=== PATIENT | male | born 1955 | race Caucasian/White ===

== ENCOUNTER 2024-09-20 02:46 | Inpatient (IN) | payer SELFPAY ==
[~2024-09-20] VITALS: Ht 175.3 cm; Wt 80.7 kg
[2024-09-20] VITALS (57 sets, daily range): BP systolic 87–147; BP diastolic 55–96; PULSE 70–134; RESP 17–33; TEMP 36.44736–39.94764; O2SAT 91–100
[2024-09-20 03:16] LABS: BASOPHILS % 0.6 % (0.0-2.0); HEMATOCRIT. 42.6 % (42.0-52.0); HEMOGLOBIN. 14.7 g/dL (14.0-18.0); LYMPHOCYTES % 13.2 % (20.0-50.0); MEAN CORPUSCULAR HEMOGLOBIN 29.2 pg (28.0-32.0); MEAN CORPUSCULAR HGB CONC 34.4 g/dL (31.0-37.0); MEAN PLATELET VOLUME 8.6 fl (7.4-10.4); MONOCYTES % 5.9 % (2.0-8.0); NEUTROPHILS % 79.3 % (40.0-76.0); PLATELET 172 x1000/uL (130-400); RED BLOOD CELL COUNT 5.02 mill/uL (4.7-6.1); RED CELL DISTRIBUTION WIDTH 16.2 % (11.6-14.6); WHITE BLOOD COUNT 11.2 x1000/uL (4.5-11.0)
[2024-09-20 03:18] LABS: CHLORIDE 106 mEq/L (98-107); POTASSIUM 3.9 mEq/L (3.5-5.1); SODIUM 139 mEq/L (136-145)
[2024-09-20 03:19] LABS: CALCIUM 9.1 mg/dL (8.7-10.4); CARBON DIOXIDE 27 mEq/L (21-32)
[2024-09-20 03:24] LABS: CREATININE 0.9 mg/dL (0.6-1.3); GLUCOSE 145 mg/dL (70-105); UREA NITROGEN BLOOD 24 mg/dL (9-23)
[2024-09-20 04:02] LABS: ETHANOL BLOOD < 10 mg/dL (<10)
[2024-09-20 04:38] LABS: BG BASE EXCESS -0.1 mmol/L (-2.0-3.0); BG CARBOXYHEMOGLOBIN 0.3 % (0.5-1.5); BG DEOXYHEMOGLOBIN 0.5 % (0.0-5.0); BG FRACTION INSPIRED OXYGEN 100; BG HCO3 ACT 23.5 mmol/L (21.0-28.0); BG METHEMOGLOBIN 0.3 % (0.5-1.5); BG OXYGEN SATURATION 99.5 % (94.0-98.0); BG OXYHEMOGLOBIN 98.9 % (94.0-98.0); BG PCO2 35.7 mmHg (35.0-48.0); BG PH 7.437 (7.350-7.450); BG PO2 259.8 mmHg (83.0-108.0); BG SAMPLE SITE RIGHT BRACHIAL; BG TOTAL HEMOGLOBIN 15.1 g/dL (13.5-17.5); BG VENT MODE MASK - NRB
[2024-09-20 04:39] LABS: TROPONIN I HIGH SENSITIVITY 6 ng/L (3.0-53)
[2024-09-20] MEDS ORDERED: MAGNESIUM/ALUMINUM HYDROXIDE/SIMETHICONE 30ML UDC PO PRN (05:00)
[2024-09-20] MEDS ORDERED: ONDANSETRON HCL 4MG/2ML INJ IV PRN (05:00)
[2024-09-20] MEDS ORDERED: CLONIDINE 0.1MG TABLET PO PRN (05:00)
[2024-09-20] MEDS: LEVETIRACETAM 500MG PREMIX 100 ML IV ONE (05:25)
[2024-09-20 05:39] LABS: T4 FREE 1.35 ng/dL (0.89-1.76)
[2024-09-20] MEDS ORDERED: DEXTROSE 50% WATER 50ML SYRINGE IV PRN (05:45)
[2024-09-20] MEDS ORDERED: HYDRALAZINE 20MG/ML VIAL IV PRN (06:00)
[2024-09-20 06:07] LABS: PHOSPHORUS 2.6 mg/dL (2.5-4.9)
[2024-09-20] MEDS: BLOOD SUGAR DIAGNOSTIC STRIP TEST SCH ×2 (06:34→18:50)
[2024-09-20] MEDS: DEXT 5%/0.9% NACL 1,000 ML IV SCH (06:34)
[2024-09-20] MEDS: INSULIN LISPRO 100 UNITS/ML SUBCUT SCH ×2 (07:15→18:51)
[2024-09-20] MEDS ORDERED: LEVETIRACETAM 500MG in NACL 100ML PREMIX IV SCH (09:00)
[2024-09-20] MEDS: FAMOTIDINE 20MG/2ML VIAL IV SCH (09:11)
[2024-09-20] MEDS: IPRATROPIUM/ALBUTEROL 0.5-3(2.5)MG/3ML NEB HHN PRN (09:48)
[2024-09-20] MEDS: FUROSEMIDE 100MG/10ML VIAL IVP NR (10:11)
[2024-09-20] MEDS: SODIUM CHLORIDE 0.9% 1,000 ML IV ONE (13:54)
[2024-09-20 14:00] LABS: ALANINE AMINOTRANSFERASE 25 IU/L (10-49); ASPARTATE AMINOTRANSFERASE 29 IU/L (<34)
[2024-09-20 14:01] LABS: ALBUMIN 4.8 g/dL (3.2-4.8); BILIRUBIN DIRECT 0.3 mg/dL (<=3.0); BILIRUBIN TOTAL 0.9 mg/dL (0.1-1.0); CREATINE KINASE 102 IU/L (46-171); PROTEIN TOTAL 8.4 g/dL (6.0-8.3)
[2024-09-20 14:07] LABS: CLARITY URINE CLEAR (CLEAR); COLOR URINE YELLOW (YELLOW); GLUCOSE URINE NEGATIVE (NEGATIVE); KETONES URINE NEGATIVE (NEGATIVE); LEUKOCYTE ESTERASE URINE NEGATIVE (NEGATIVE); NITRITE URINE NEGATIVE (NEGATIVE); OCCULT BLOOD URINE 1+ (NEGATIVE); PROTEIN URINE NEGATIVE (NEGATIVE); SPECIFIC GRAVITY URINE 1.009 (1.005-1.030); UROBILINOGEN URINE 0.2 E.U./dL (0.2-1.0)
[2024-09-20 14:42] LABS: HYALINE CASTS URINE 0-5 /lpf; SQUAMOUS EPITHELIAL CELL URINE NONE SEEN /lpf (RARE/1+); WBC URINE 0-2 /hpf (0-2)
[2024-09-20 14:43] LABS: *AMPHETAMINES SCREEN URINE NEGATIVE (NEGATIVE); *BARBITURATES SCREEN URINE NEGATIVE (NEGATIVE); *BENZODIAZEPINES SCREEN URINE NEGATIVE (NEGATIVE); *COCAINE SCREEN URINE NEGATIVE (NEGATIVE); BACTERIA URINE RARE; YEAST URINE NONE SEEN
[2024-09-20 14:44] LABS: CANNABINOID URINE SCREEN NEGATIVE (NEGATIVE); ECSTASY MDMA SCREEN URINE NEGATIVE (NEGATIVE); METHADONE URINE SCREEN NEGATIVE (NEGATIVE); OPIATES URINE SCREEN NEGATIVE (NEGATIVE); PHENCYCLIDINE URINE SCREEN NEGATIVE (NEGATIVE)
[2024-09-20] MEDS ORDERED: PHENYLEPHRINE 50MG/250ML PMX 250 ML IV PRN (14:45)
[2024-09-20 14:56] LABS: LACTIC ACID 3.6 mmol/L (0.4-2.0)
[2024-09-20] MEDS: NOREPINEPHRINE 8MG/250ML PMX 250 ML IV PRN (15:29)
[2024-09-20] MEDS: PIPERACILLIN/TAZO 3.375G/50ML 50 ML IV SCH (15:29)
[2024-09-20] MEDS: ACETAMINOPHEN 650MG SUPP PR PRN (15:30)
[2024-09-20] MEDS: PROPOFOL 10MG/ML 100ML 100 ML IV PRN (15:30)
[2024-09-20 15:48] LABS: BG BASE EXCESS -7.8 mmol/L (-2.0-3.0); BG CARBOXYHEMOGLOBIN 0.2 % (0.5-1.5); BG DEOXYHEMOGLOBIN 1.6 % (0.0-5.0); BG HCO3 ACT 16.9 mmol/L (21.0-28.0); BG METHEMOGLOBIN 0.2 % (0.5-1.5); BG OXYGEN SATURATION 98.4 % (94.0-98.0); BG PCO2 32.9 mmHg (35.0-48.0); BG PH 7.328 (7.350-7.450); BG PO2 131.5 mmHg (83.0-108.0); BG SAMPLE SITE RIGHT BRACHIAL; BG VENT MODE VENT - AC
[2024-09-20 18:07] LABS: BASOPHILS % 0.1 % (0.0-2.0); EOSINOPHILS % 0.1 % (0.0-5.0); HEMATOCRIT. 49.3 % (42.0-52.0); HEMOGLOBIN. 16.2 g/dL (14.0-18.0); LYMPHOCYTES % 11.9 % (20.0-50.0); MEAN CORPUSCULAR HEMOGLOBIN 28.9 pg (28.0-32.0); MEAN CORPUSCULAR HGB CONC 32.8 g/dL (31.0-37.0); MEAN CORPUSCULAR VOLUME 88.1 fL (80.0-94.0); MEAN PLATELET VOLUME 9.8 fl (7.4-10.4); MONOCYTES % 9.4 % (2.0-8.0); NEUTROPHILS % 78.5 % (40.0-76.0); PLATELET 199 x1000/uL (130-400); RED BLOOD CELL COUNT 5.59 mill/uL (4.7-6.1); RED CELL DISTRIBUTION WIDTH 16.7 % (11.6-14.6); WHITE BLOOD COUNT 12.7 x1000/uL (4.5-11.0)
[2024-09-20 18:09] LABS: CHLORIDE 104 mEq/L (98-107); SODIUM 138 mEq/L (136-145)
[2024-09-20 18:10] LABS: CALCIUM 9.1 mg/dL (8.7-10.4); CARBON DIOXIDE 22 mEq/L (21-32)
[2024-09-20 18:13] LABS: INR 1.1; PARTIAL THROMBOPLASTIN TIME 25.9 sec (23.4-31.0); PROTHROMBIN TIME 11.9 sec (9.6-11.0)
[2024-09-20 18:15] LABS: GLUCOSE 262 mg/dL (70-105); UREA NITROGEN BLOOD 27 mg/dL (9-23)
[2024-09-20 18:16] LABS: CREATININE 1.5 mg/dL (0.6-1.3)
[2024-09-20 18:17] LABS: PHOSPHORUS 2.9 mg/dL (2.5-4.9)
[2024-09-20] MEDS: DOCUSATE SODIUM 100MG CAPSULE PO PRN (18:49)
[2024-09-20] MEDS: ACETAMINOPHEN 325MG TABLET PO PRN (18:50)
[2024-09-20 19:43] LABS: *AMPHETAMINES SCREEN URINE NEGATIVE (NEGATIVE); *BARBITURATES SCREEN URINE NEGATIVE (NEGATIVE); *BENZODIAZEPINES SCREEN URINE NEGATIVE (NEGATIVE); *COCAINE SCREEN URINE NEGATIVE (NEGATIVE)
[2024-09-20 19:44] LABS: CANNABINOID URINE SCREEN NEGATIVE (NEGATIVE); ECSTASY MDMA SCREEN URINE NEGATIVE (NEGATIVE); METHADONE URINE SCREEN NEGATIVE (NEGATIVE); OPIATES URINE SCREEN NEGATIVE (NEGATIVE); PHENCYCLIDINE URINE SCREEN NEGATIVE (NEGATIVE)
[2024-09-20] MEDS: LEVETIRACETAM 1000MG PREMIX 100 ML IV NR (20:49)
[2024-09-20] MEDS: ATORVASTATIN CALCIUM 20MG TABLET PO SCH (20:50)
[2024-09-20] MEDS ORDERED: ATORVASTATIN CALCIUM 20MG TABLET PO SCH (21:00)
[2024-09-20] MEDS ORDERED: LEVETIRACETAM 500MG PREMIX 100 ML IV SCH (21:00)
[2024-09-21] VITALS (100 sets, daily range): BP systolic 81–157; BP diastolic 51–127; PULSE 69–166; RESP 14–28; TEMP 37.2252–39.00312; O2SAT 98–100
[2024-09-21 06:14] LABS: BASOPHILS % 0.2 % (0.0-2.0); HEMATOCRIT. 50.4 % (42.0-52.0); HEMOGLOBIN. 16.9 g/dL (14.0-18.0); LYMPHOCYTES % 13.1 % (20.0-50.0); MEAN CORPUSCULAR HEMOGLOBIN 29.1 pg (28.0-32.0); MEAN CORPUSCULAR HGB CONC 33.6 g/dL (31.0-37.0); MEAN CORPUSCULAR VOLUME 86.7 fL (80.0-94.0); MEAN PLATELET VOLUME 9.6 fl (7.4-10.4); MONOCYTES % 9.3 % (2.0-8.0); NEUTROPHILS % 77.4 % (40.0-76.0); PLATELET 69 x1000/uL (130-400); RED BLOOD CELL COUNT 5.81 mill/uL (4.7-6.1); WHITE BLOOD COUNT 13.1 x1000/uL (4.5-11.0)
[2024-09-21 06:22] LABS: POTASSIUM 3.5 mEq/L (3.5-5.1)
[2024-09-21 06:23] LABS: CALCIUM 8.8 mg/dL (8.7-10.4)
[2024-09-21 06:28] LABS: CREATININE 1.9 mg/dL (0.6-1.3)
[2024-09-21 08:23] LABS: BG CARBOXYHEMOGLOBIN 0.6 % (0.5-1.5); BG DEOXYHEMOGLOBIN 0.6 % (0.0-5.0); BG FRACTION INSPIRED OXYGEN 80; BG HCO3 ACT 14.7 mmol/L (21.0-28.0); BG METHEMOGLOBIN 0.2 % (0.5-1.5); BG OXYGEN SATURATION 99.4 % (94.0-98.0); BG OXYHEMOGLOBIN 98.6 % (94.0-98.0); BG PCO2 24.8 mmHg (35.0-48.0); BG SAMPLE SITE LEFT RADIAL; BG TOTAL HEMOGLOBIN 16.7 g/dL (13.5-17.5); BG VENT MODE VENT - AC
[2024-09-21] MEDS: ASPIRIN 81MG TABLET PO SCH (08:59)
[2024-09-21] MEDS: LEVETIRACETAM 500MG PREMIX 100ML IV SCH (08:59)
[2024-09-21] MEDS: CLOPIDOGREL 75MG TABLET PO SCH (08:59)
[2024-09-21] MEDS ORDERED: LOSARTAN 50 MG TABLET PO SCH (09:00)
[2024-09-21 10:06] LABS: PHOSPHORUS 2.2 mg/dL (2.5-4.9)
[2024-09-21] MEDS: MAGNESIUM 2 G PREMIX 50 ML IV NR (12:02)
[2024-09-21 12:18] LABS: LACTIC ACID 5.5 mmol/L (0.4-2.0)
[2024-09-21] MEDS: AMIODARONE HCL 900 MG in DEXT 5% WATER 482 ML IV SCH (13:37)
[2024-09-21] MEDS: SODIUM BICARBONATE 8.4% 50MEQ/50ML SYR IV NR (17:26)
[2024-09-21] MEDS: ACETAMINOPHEN 650MG/20.3ML UDC PO PRN (17:27)
[2024-09-21] MEDS: IOHEXOL-350 100 ML BOTTLE ONE (17:27)
[2024-09-22] VITALS (95 sets, daily range): BP systolic 120–179; BP diastolic 63–91; PULSE 61–112; RESP 16–29; TEMP 36.89184–38.94756; O2SAT 98–100
[2024-09-22 06:08] LABS: CALCIUM 7.6 mg/dL (8.7-10.4); CARBON DIOXIDE 19 mEq/L (21-32); CHLORIDE 108 mEq/L (98-107); POTASSIUM 3.4 mEq/L (3.5-5.1); SODIUM 142 mEq/L (136-145)
[2024-09-22 06:14] LABS: CREATININE 2.2 mg/dL (0.6-1.3); GLUCOSE 270 mg/dL (70-105); HEMATOCRIT 47.1 % (42.0-52.0); HEMOGLOBIN 15.5 g/dL (14.0-18.0); MEAN CORPUSCULAR HEMOGLOBIN 28.6 pg (28.0-32.0); MEAN CORPUSCULAR VOLUME 86.6 fL (80.0-94.0); RED BLOOD CELL COUNT 5.44 mill/uL (4.7-6.1); RED CELL DISTRIBUTION WIDTH 17.4 % (11.6-14.6); UREA NITROGEN BLOOD 47 mg/dL (9-23); WHITE BLOOD COUNT 13.8 x1000/uL (4.5-11.0)
[2024-09-22 06:16] LABS: PHOSPHORUS 3.7 mg/dL (2.5-4.9)
[2024-09-22 09:02] LABS: FIBRINOGEN 323 mg/dL (200-400); INR 1.7; PARTIAL THROMBOPLASTIN TIME 32.7 sec (23.4-31.0); PROTHROMBIN TIME 18.4 sec (9.6-11.0)
[2024-09-22 09:14] LABS: BG BASE EXCESS -7.3 mmol/L (-2.0-3.0); BG CARBOXYHEMOGLOBIN 0.8 % (0.5-1.5); BG FRACTION INSPIRED OXYGEN 40; BG METHEMOGLOBIN 0.3 % (0.5-1.5); BG OXYHEMOGLOBIN 97.9 % (94.0-98.0); BG PCO2 31.6 mmHg (35.0-48.0); BG PH 7.349 (7.350-7.450); BG PO2 155.6 mmHg (83.0-108.0); BG TOTAL HEMOGLOBIN 15.8 g/dL (13.5-17.5); BG VENT MODE VENT - AC
[2024-09-22] MEDS: PANTOPRAZOLE SODIUM 40 MG/VIAL IV SCH (09:26)
[2024-09-22 09:33] LABS: D-DIMER > 35.20 mg/L FEU (<0.50)
[2024-09-22] MEDS ORDERED: MANNITOL 20% (20GM/100ML) BAG 500ML PREMIX IV ONE (11:45)
[2024-09-22] MEDS ORDERED: HYDRALAZINE 20MG/ML VIAL IV PRN (12:30)
[2024-09-22] MEDS: CEFTRIAXONE 2GM/50ML 50 ML IV SCH (13:17)
[2024-09-22] MEDS ORDERED: AMIODARONE 360MG/200ML 200 ML IV SCH (15:00)
[2024-09-22] MEDS: MANNITOL 20% 500 ML IV NR (15:41)
[2024-09-22] MEDS: AMIODARONE 200MG TABLET PO SCH (18:43)
[2024-09-23] VITALS (52 sets, daily range): BP systolic 143–190; BP diastolic 74–111; PULSE 61–110; RESP 17–28; TEMP 36.50292–40.0032; O2SAT 98–100
[2024-09-23 05:11] LABS: CHLORIDE 109 mEq/L (98-107); POTASSIUM 3.8 mEq/L (3.5-5.1); SODIUM 141 mEq/L (136-145)
[2024-09-23 05:12] LABS: CALCIUM 7.2 mg/dL (8.7-10.4); CARBON DIOXIDE 20 mEq/L (21-32)
[2024-09-23 05:17] LABS: GLUCOSE 211 mg/dL (70-105)
[2024-09-23 05:18] LABS: UREA NITROGEN BLOOD 54 mg/dL (9-23)
[2024-09-23 05:19] LABS: PHOSPHORUS 2.9 mg/dL (2.5-4.9)
[2024-09-23 05:24] LABS: HEMATOCRIT 41.3 % (42.0-52.0); MEAN CORPUSCULAR HEMOGLOBIN 28.9 pg (28.0-32.0); MEAN CORPUSCULAR HGB CONC 33.8 g/dL (31.0-37.0); MEAN CORPUSCULAR VOLUME 85.6 fL (80.0-94.0); RED BLOOD CELL COUNT 4.82 mill/uL (4.7-6.1); RED CELL DISTRIBUTION WIDTH 17.6 % (11.6-14.6); WHITE BLOOD COUNT 11.8 x1000/uL (4.5-11.0)
[2024-09-23 05:27] LABS: CREATININE 3.5 mg/dL (0.6-1.3)
[2024-09-23 11:24] LABS: PLATELET 26 x1000/uL (130-400)
[2024-09-23] MEDS ORDERED: ACETAMINOPHEN 650MG SUPP PR PRN (13:45)
[2024-09-23] MEDS: ACETAMINOPHEN 650MG SUPP PR PRN (14:30)
[2024-09-24] VITALS (54 sets, daily range): BP systolic 98–180; BP diastolic 72–99; PULSE 76–148; RESP 15–38; TEMP 37.16964–39.11424; O2SAT 94–100
[2024-09-24] MEDS: LORAZEPAM 2MG/ML INJ IV PRN (00:19)
[2024-09-24 06:07] LABS: POTASSIUM 4.4 mEq/L (3.5-5.1)
[2024-09-24 06:09] LABS: CALCIUM 7.2 mg/dL (8.7-10.4)
[2024-09-24 06:13] LABS: BASOPHILS % 0.6 % (0.0-2.0); EOSINOPHILS % 0.1 % (0.0-5.0); HEMATOCRIT. 41.2 % (42.0-52.0); HEMOGLOBIN. 13.9 g/dL (14.0-18.0); LYMPHOCYTES % 7.3 % (20.0-50.0); MEAN CORPUSCULAR HEMOGLOBIN 29.1 pg (28.0-32.0); MEAN CORPUSCULAR HGB CONC 33.7 g/dL (31.0-37.0); MEAN CORPUSCULAR VOLUME 86.2 fL (80.0-94.0); MEAN PLATELET VOLUME 11.1 fl (7.4-10.4); MONOCYTES % 3.5 % (2.0-8.0); NEUTROPHILS % 88.5 % (40.0-76.0); RED BLOOD CELL COUNT 4.77 mill/uL (4.7-6.1); RED CELL DISTRIBUTION WIDTH 17.7 % (11.6-14.6); WHITE BLOOD COUNT 8.4 x1000/uL (4.5-11.0)
[2024-09-24 07:08] LABS: DIFFERENTIAL COMMENT 1; PLATELET 28 x1000/uL (130-400)
[2024-09-24] MEDS: LIDOCAINE HCL 1% 10 MG/ML 10ML VIAL ONE (10:13)
[2024-09-24] MEDS: CEFTRIAXONE 2GM/50ML 50 ML IV SCH (12:56)
[2024-09-24 13:14] LABS: PLATELET 24 x1000/uL (130-400)
[2024-09-24] MEDS ORDERED: PROPOFOL 10MG/ML 100ML 100 ML IV PRN (21:45)
[2024-09-25] VITALS (79 sets, daily range): BP systolic 158–176; BP diastolic 81–100; PULSE 86–138; RESP 13–30; TEMP 36.72516–38.39196; O2SAT 97–100
[2024-09-25 06:32] LABS: CALCIUM 7.6 mg/dL (8.7-10.4); CARBON DIOXIDE 18 mEq/L (21-32); CHLORIDE 119 mEq/L (98-107); POTASSIUM 4.3 mEq/L (3.5-5.1); SODIUM 149 mEq/L (136-145)
[2024-09-25 06:37] LABS: CREATININE 4.6 mg/dL (0.6-1.3); GLUCOSE 339 mg/dL (70-105)
[2024-09-25 06:38] LABS: TRIGLYCERIDE 146 mg/dL (0-150); UREA NITROGEN BLOOD 72 mg/dL (9-23)
[2024-09-25 06:40] LABS: PHOSPHORUS 4.6 mg/dL (2.5-4.9)
[2024-09-25] MEDS: DEXT 5%/0.45% NACL 1000ML 1,000 ML IV SCH (08:42)
[2024-09-25 09:22] LABS: HEMATOCRIT 42.1 % (42.0-52.0); HEMOGLOBIN 13.9 g/dL (14.0-18.0); MEAN CORPUSCULAR VOLUME 87.8 fL (80.0-94.0); RED CELL DISTRIBUTION WIDTH 18.3 % (11.6-14.6)
[2024-09-25 13:01] LABS: PLATELET 40 x1000/uL (130-400)
[2024-09-25] MEDS ORDERED: DEXTROSE 50% WATER 50ML SYRINGE IV PRN (18:00)
[2024-09-25] MEDS: INSULIN LISPRO 100 UNITS/ML SUBCUT SCH (18:40)
[2024-09-25] MEDS: BLOOD SUGAR DIAGNOSTIC STRIP TEST SCH (21:00)
[2024-09-25] MEDS: ATORVASTATIN CALCIUM 40MG TABLET PO SCH (22:06)
[2024-09-25] MEDS: INSULIN GLARGINE 100 UNITS/ML SUBCUT SCH (22:10)
[2024-09-26] VITALS (82 sets, daily range): BP systolic 53–194; BP diastolic 41–102; PULSE 58–121; RESP 16–26; TEMP 36.28068–39.4476; O2SAT 94–99
[2024-09-26 06:09] LABS: CARBON DIOXIDE 16 mEq/L (21-32); CHLORIDE 123 mEq/L (98-107); POTASSIUM 4.5 mEq/L (3.5-5.1); SODIUM 151 mEq/L (136-145)
[2024-09-26 06:10] LABS: CALCIUM 7.7 mg/dL (8.7-10.4)
[2024-09-26 06:15] LABS: CREATININE 4.3 mg/dL (0.6-1.3); GLUCOSE 396 mg/dL (70-105); UREA NITROGEN BLOOD 82 mg/dL (9-23)
[2024-09-26 06:17] LABS: PHOSPHORUS 2.5 mg/dL (2.5-4.9)
[2024-09-26 07:36] LABS: HEMOGLOBIN 12.9 g/dL (14.0-18.0); HEMOGLOBIN. 12.9 g/dL (14.0-18.0); RED CELL DISTRIBUTION WIDTH 17.3 % (11.6-14.6)
[2024-09-26 07:40] LABS: EOSINOPHILS % 0.3 % (0.0-5.0); HEMATOCRIT 38.6 % (42.0-52.0); HEMATOCRIT. 38.6 % (42.0-52.0); LYMPHOCYTES % 8.2 % (20.0-50.0); MEAN CORPUSCULAR HGB CONC 33.5 g/dL (31.0-37.0); MEAN CORPUSCULAR VOLUME 86.6 fL (80.0-94.0); MEAN PLATELET VOLUME 11.6 fl (7.4-10.4); MONOCYTES % 5.2 % (2.0-8.0); NEUTROPHILS % 85.3 % (40.0-76.0); RED BLOOD CELL COUNT 4.46 mill/uL (4.7-6.1); WHITE BLOOD COUNT 7.2 x1000/uL (4.5-11.0)
[2024-09-26 07:41] LABS: DIFFERENTIAL COMMENT 1
[2024-09-26 07:43] LABS: PLATELET 50 x1000/uL (130-400)
[2024-09-26] MEDS ORDERED: PHENYLEPHRINE 50 MG in DEXTROSE 5% WATER 250 ML IV PRN (09:30)
[2024-09-26] MEDS: DEXTROSE 5% WATER 1,000 ML IV SCH (09:37)
[2024-09-26] MEDS: CITRIC ACID/SODIUM CITRATE SOLN 30ML UDC PO SCH (09:37)
[2024-09-26] MEDS: INSULIN GLARGINE 100 UNITS/ML SUBCUT SCH ×2 (11:07→23:15)
[2024-09-26] MEDS ORDERED: ACETAMINOPHEN 1000MG/100ML 100 ML IV PRN (11:30)
[2024-09-26 19:06] LABS: GLYCOPROTEIN IV AB Negative (Negative); HLA CLASS 1 ANTIBODY Negative (Negative); IIb/IIIa ANTIBODY Negative (Negative); Ia/IIa ANTIBODY Negative (Negative); Ib/IX ANTIBODY Negative (Negative)
[2024-09-27] VITALS (74 sets, daily range): BP systolic 83–156; BP diastolic 56–86; PULSE 53–73; RESP 15–23; TEMP 36.16956–37.00296; O2SAT 95–100
[2024-09-27 06:20] LABS: CALCIUM 7.7 mg/dL (8.7-10.4); CARBON DIOXIDE 18 mEq/L (21-32); CHLORIDE 117 mEq/L (98-107); SODIUM 147 mEq/L (136-145)
[2024-09-27 06:26] LABS: BASOPHILS % 0.2 % (0.0-2.0); EOSINOPHILS % 5.1 % (0.0-5.0); HEMATOCRIT 33.8 % (42.0-52.0); HEMATOCRIT. 33.8 % (42.0-52.0); HEMOGLOBIN 11.3 g/dL (14.0-18.0); HEMOGLOBIN. 11.3 g/dL (14.0-18.0); LYMPHOCYTES % 12.3 % (20.0-50.0); MEAN CORPUSCULAR HEMOGLOBIN 29.5 pg (28.0-32.0); MEAN CORPUSCULAR HGB CONC 33.5 g/dL (31.0-37.0); MEAN CORPUSCULAR VOLUME 87.8 fL (80.0-94.0); MONOCYTES % 3.3 % (2.0-8.0); NEUTROPHILS % 79.1 % (40.0-76.0); RED BLOOD CELL COUNT 3.85 mill/uL (4.7-6.1); RED CELL DISTRIBUTION WIDTH 18.1 % (11.6-14.6); WHITE BLOOD COUNT 8.1 x1000/uL (4.5-11.0)
[2024-09-27 06:28] LABS: PHOSPHORUS 4.9 mg/dL (2.5-4.9)
[2024-09-27 07:51] LABS: CREATININE 6.2 mg/dL (0.6-1.3); UREA NITROGEN BLOOD 105 mg/dL (9-23)
[2024-09-27 07:54] LABS: GLUCOSE 405 mg/dL (70-105)
[2024-09-27 09:17] LABS: CREATINE KINASE 29144 IU/L (46-171)
[2024-09-27 10:50] LABS: PLATELET 42 x1000/uL (130-400)
[2024-09-27 10:52] LABS: ADD RBC MORPHOLOGY YES; DIFFERENTIAL COMMENT 1
[2024-09-27 10:53] LABS: ANISOCYTOSIS 2+; PLATELET ESTIMATE MARKEDLY DECREASED
[2024-09-27 11:21] LABS: BG BASE EXCESS -9.5 mmol/L (-2.0-3.0); BG CARBOXYHEMOGLOBIN 0.2 % (0.5-1.5); BG DEOXYHEMOGLOBIN 0.8 % (0.0-5.0); BG FRACTION INSPIRED OXYGEN 100; BG METHEMOGLOBIN 0.3 % (0.5-1.5); BG OXYGEN SATURATION 99.2 % (94.0-98.0); BG OXYHEMOGLOBIN 98.7 % (94.0-98.0); BG PCO2 39.1 mmHg (35.0-48.0); BG PH 7.255 (7.350-7.450); BG SAMPLE SITE RIGHT RADIAL; BG TOTAL HEMOGLOBIN 11.3 g/dL (13.5-17.5)
[2024-09-27] MEDS: SODIUM BICARBONATE 100 MEQ in DEXTROSE 5% WATER 900 ML IV SCH (14:06)
[2024-09-27] MEDS ORDERED: DEXTROSE 50% WATER 50ML SYRINGE IV PRN (17:00)
[2024-09-27] MEDS: INSULIN LISPRO 100 UNITS/ML SUBCUT SCH (17:13)
[2024-09-27] MEDS: BLOOD SUGAR DIAGNOSTIC STRIP TEST SCH (21:20)
[2024-09-27] MEDS: INSULIN LISPRO 100 UNITS/ML SUBCUT NR (21:23)
[2024-09-27] MEDS ORDERED: SODIUM BICARBONATE 100 MEQ in DEXTROSE 5% WATER 900 ML IV SCH (21:30)
[2024-09-27] MEDS: SODIUM BICARBONATE 100 MEQ in SODIUM CHLORIDE 0.45% 900 ML IV SCH (23:35)
[2024-09-28] VITALS (45 sets, daily range): BP systolic 105–152; BP diastolic 63–79; PULSE 58–67; RESP 0–16; TEMP 36.114–36.78072; O2SAT 95–100
[2024-09-28] MEDS: BLOOD SUGAR DIAGNOSTIC STRIP TEST SCH ×3 (00:22→11:00)
[2024-09-28] MEDS: INSULIN LISPRO 100 UNITS/ML SUBCUT NR (00:25)
[2024-09-28] MEDS: INSULIN LISPRO 100 UNITS/ML SUBCUT SCH ×2 (00:26→11:00)
[2024-09-28] MEDS: INSULIN GLARGINE 100 UNITS/ML SUBCUT NR (00:26)
[2024-09-28] MEDS ORDERED: KCL 20MEQ/100ML PREMIX 100 ML IV PRN (02:30)
[2024-09-28] MEDS ORDERED: POTASSIUM CHLORIDE 40 MEQ in SODIUM CHLORIDE 0.9% 230 ML IV PRN (02:30)
[2024-09-28] MEDS ORDERED: MAGNESIUM 2 G PREMIX 50 ML IV PRN (02:30)
[2024-09-28] MEDS ORDERED: DEXTROSE 50% WATER 50ML SYRINGE IV PRN ×2 (02:30→10:45)
[2024-09-28] MEDS ORDERED: BLOOD SUGAR DIAGNOSTIC STRIP TEST PRN (02:30)
[2024-09-28] MEDS ORDERED: SODIUM PHOSPHATE 15 MMOL in SODIUM CHLORIDE 0.9% 245 ML IV PRN (02:30)
[2024-09-28] MEDS ORDERED: SODIUM CHLORIDE 0.9% 1,000 ML IV SCH (02:30)
[2024-09-28] MEDS: INSULIN REGULAR 100U/100ML PMX 100 ML IV SCH (02:49)
[2024-09-28 06:42] LABS: POTASSIUM 4.2 mEq/L (3.5-5.1)
[2024-09-28 06:43] LABS: CALCIUM 7.8 mg/dL (8.7-10.4)
[2024-09-28 06:47] LABS: HEMATOCRIT 32.7 % (42.0-52.0); HEMOGLOBIN 11.1 g/dL (14.0-18.0); MEAN CORPUSCULAR HEMOGLOBIN 29.3 pg (28.0-32.0); MEAN CORPUSCULAR HGB CONC 33.9 g/dL (31.0-37.0); MEAN CORPUSCULAR VOLUME 86.3 fL (80.0-94.0); RED BLOOD CELL COUNT 3.79 mill/uL (4.7-6.1); RED CELL DISTRIBUTION WIDTH 17.6 % (11.6-14.6); WHITE BLOOD COUNT 8.2 x1000/uL (4.5-11.0)
[2024-09-28 06:50] LABS: PHOSPHORUS 5.9 mg/dL (2.5-4.9)
[2024-09-28 06:51] LABS: CREATININE 6.7 mg/dL (0.6-1.3)
[2024-09-28 07:33] LABS: PLATELET 34 x1000/uL (130-400)
[2024-09-28] MEDS: AMIODARONE 200MG TABLET PO SCH (08:47)
[2024-09-28 10:21] LABS: BG BASE EXCESS -1.7 mmol/L (-2.0-3.0); BG CARBOXYHEMOGLOBIN 0.6 % (0.5-1.5); BG DEOXYHEMOGLOBIN 1.1 % (0.0-5.0); BG FRACTION INSPIRED OXYGEN 100; BG METHEMOGLOBIN 0.3 % (0.5-1.5); BG OXYGEN SATURATION 98.9 % (94.0-98.0); BG PCO2 44.6 mmHg (35.0-48.0); BG PH 7.348 (7.350-7.450); BG PO2 180.6 mmHg (83.0-108.0); BG SAMPLE SITE LEFT RADIAL; BG TOTAL HEMOGLOBIN 11.2 g/dL (13.5-17.5); BG VENT MODE VENT - AC
[2024-09-28] MEDS: GUAIFENESIN 200MG/10ML SUGAR FREE UDC PO PRN (11:09)
[2024-09-28 11:40] LABS: BG BASE EXCESS -3.2 mmol/L (-2.0-3.0); BG CARBOXYHEMOGLOBIN 0.6 % (0.5-1.5); BG DEOXYHEMOGLOBIN 4.1 % (0.0-5.0); BG FRACTION INSPIRED OXYGEN 60; BG HCO3 ACT 27.8 mmol/L (21.0-28.0); BG METHEMOGLOBIN 0.3 % (0.5-1.5); BG OXYGEN SATURATION 95.9 % (94.0-98.0); BG PCO2 86.3 mmHg (35.0-48.0); BG PH 7.126 (7.350-7.450); BG PO2 103.5 mmHg (83.0-108.0); BG SAMPLE SITE RIGHT RADIAL; BG TOTAL HEMOGLOBIN 12.1 g/dL (13.5-17.5); BG VENT MODE NASAL CANNULA
[2024-09-28] MEDS ORDERED: NALOXONE HCL 0.4MG/ML VIAL IV PRN (16:45)
[2024-09-28] MEDS ORDERED: MORPHINE SULFATE 2 MG/ML INJ (NOT FOR IM USE) IV PRN (16:45)
[2024-09-28] MEDS ORDERED: LORAZEPAM 2MG/ML INJ IV PRN (16:45)
== END 2024-09-28 21:30 | DRG 720 ==
LOC: ER 03:26 → 5WST 04:48 → EDBEDREQ 04:49 → 7WST 13:14 → MICUNO 13:56
PROVIDERS: ADMIT Internal Medicine; ATTEND Internal Medicine
PROC: 5A1955Z Respiratory Ventilation, Greater than 96 Consecutive Hours (ICD-10-PCS; principal; 2024-09-20)
PROC: 0BH17EZ Insertion of Endotracheal Airway into Trachea, Via Natural or Artificial Opening (ICD-10-PCS; 2024-09-20)
PROC: 4A00X4Z Measurement of Central Nervous Electrical Activity, External Approach (ICD-10-PCS; 2024-09-23)
PROC: 02HV33Z Insertion of Infusion Device into Superior Vena Cava, Percutaneous Approach (ICD-10-PCS; 2024-09-24)
PROC: B548ZZA Ultrasonography of Superior Vena Cava, Guidance (ICD-10-PCS; 2024-09-24)
DX: A41.9 Sepsis, unspecified organism (principal); D65 Disseminated intravascular coagulation [defibrination syndrome]; I63.533 Cerebral infarction due to unspecified occlusion or stenosis of bilateral posterior cerebral arteries; J96.01 Acute respiratory failure with hypoxia; J69.0 Pneumonitis due to inhalation of food and vomit; G93.41 Metabolic encephalopathy; N17.0 Acute kidney failure with tubular necrosis; E87.0 Hyperosmolality and hypernatremia; F39 Unspecified mood [affective] disorder; I25.10 Atherosclerotic heart disease of native coronary artery without angina pectoris; E11.43 Type 2 diabetes mellitus with diabetic autonomic (poly)neuropathy; E11.65 Type 2 diabetes mellitus with hyperglycemia; I48.91 Unspecified atrial fibrillation; I50.9 Heart failure, unspecified; I13.0 Hypertensive heart and chronic kidney disease with heart failure and stage 1 through stage 4 chronic kidney disease, or unspecified chronic kidney disease; N18.9 Chronic kidney disease, unspecified; R56.9 Unspecified convulsions; E78.5 Hyperlipidemia, unspecified; E11.22 Type 2 diabetes mellitus with diabetic chronic kidney disease; D16.9 Benign neoplasm of bone and articular cartilage, unspecified; G35 Multiple sclerosis; Z95.5 Presence of coronary angioplasty implant and graft; Z79.02 Long term (current) use of antithrombotics/antiplatelets; Z79.4 Long term (current) use of insulin; Z79.82 Long term (current) use of aspirin; Z79.84 Long term (current) use of oral hypoglycemic drugs; Z79.899 Other long term (current) drug therapy; Z86.73 Personal history of transient ischemic attack (TIA), and cerebral infarction without residual deficits
CPT/HCPCS: 31500; 36415; 36573; 36600; 70496; 70551; 71045; 74176; 76770; 78610; 80048; 80061; 80076; 80305; 80320; 81003; 82375; 82550; 82805; 82962; 83036; 83605; 83735; 83880; 84100; 84145; 84439; 84443; 84478; 84484; 85025; 85027; 85362; 85379; 85384; 86022; 93005; 93306; 93970; 94002; 94003; 94640; 95816; 99285; A6261; A9512; C1725; J0282; J0360; J0696; J1815; J1940; J1953; J2060; J2270; J2470; J2543; J2704; J3475; J3490; J7030; J7060; J7070; Q9967; G0480